=== PATIENT | male | born 1990 | race Caucasian/White ===

== ENCOUNTER 2017-05-22 15:19 | Emergency (ER) | payer SELFPAY ==
[~2017-05-22] VITALS: Ht 180.3 cm; Wt 102.1 kg
[2017-05-22 17:37] VITALS: BP 154/103
== END 2017-05-22 18:05 | disposition home or self-care (01) ==
LOC: ER 15:27
DX: S93.402A Sprain of unspecified ligament of left ankle, initial encounter (principal); E66.9 Obesity, unspecified; Z68.31 Body mass index [BMI] 31.0-31.9, adult; X58.XXXA Exposure to other specified factors, initial encounter; Y93.89 Activity, other specified; Y92.89 Other specified places as the place of occurrence of the external cause; Y99.8 Other external cause status
CPT/HCPCS: 73610